=== PATIENT | female | born 2000 | race Caucasian/White ===

== ENCOUNTER 2021-06-24 23:54 | Observation (INO) | END 2021-06-25 01:41 | disposition home or self-care (01) | LOC: 1NENULAB | PROVIDERS: ADMIT Student in an Organized Health Care Education/Training Program; ATTEND Student in an Organized Health Care Education/Training Program ==

== ENCOUNTER 2021-07-04 21:44 | Inpatient (IN) ==
[~2021-07-04 21:44] MED LIST: *HR* Nalbuphine 10 MG/ML AMPUL IV PRN; Famotidine 20 MG/2 ML VIAL IVP PRN; Lidocaine 1% 20 ML MDV INFILT PRN; Metoclopramide 10 MG/2 ML VIAL IVP PRN; Naloxone 0.4 MG/ML INJ IVP PRN; Ondansetron 4 MG/2 ML VIAL IVP PRN
[2021-07-04] MEDS ORDERED: Ringers Solution, Lactated 1,000 ML IVC SCH (21:45)
[2021-07-04] MEDS ORDERED: EPHEDrine 50 MG/ML VIAL IVP PRN (21:48)
[2021-07-04] MEDS ORDERED: *HR* FentaNYL (PF) 100 MCG/2 ML VIAL EP ONE (21:48)
[2021-07-04] MEDS ORDERED: Ropivacaine/PF 0.2% 20 ML VIAL EP ONE (21:48)
[2021-07-04] MEDS ORDERED: *HR* FentaNYL (PF) 100 MCG/2 ML VIAL ONE (21:52)
[2021-07-04] MEDS ORDERED: Oxytocin 20 units/ LR 1000 mL 20 UNIT/1,000 ML BAG IVC ONE (21:53)
[2021-07-04] MEDS ORDERED: Epidural Premix (fent/bupiv) 110 ML EP SCH (22:00)
[2021-07-04 22:11] LABS: Basophils % 0.4 %; Eosinophils # 0.1 K/mcL (0.0-0.6); Eosinophils % 0.9 %; Hematocrit 36.6 % (35.3-44.9); Hemoglobin 12.2 g/dL (11.5-15.4); Immature Granulocytes % 0.4 % (0-4); Lymphocytes # 2.2 K/mcL (0.6-4.6); Lymphocytes % 23.4 %; Mean Corpuscular HGB Conc 33.3 g/dL (31.6-35.5); Mean Corpuscular Hemoglobin 28.4 pg (28.0-33.3); Mean Corpuscular Volume 85.1 fL (83.0-100.0); Mean Platelet Volume 11.6 fL (9.4-12.4); Monocytes # 0.6 K/mcL (0.0-1.3); Monocytes % 6.5 %; Neutrophils # 6.3 K/mcL (1.6-8.9); Platelet Count 227 K/mcL (140-400); Segmented Neutrophils % 68.4 %; White Blood Count 9.2 K/mcL (4.3-11.1)
[2021-07-04 23:24] LABS: Amphetamine Screen,Urine Negative ng/mL (Cutoff=1000); Barbiturate Screen,Urine Negative ng/mL (Cutoff=200); Benzodiazepines Screen,Urine Negative ng/mL (Cutoff=200); Cannabinoid Screen,Urine Negative ng/mL (Cutoff = 50); Cocaine Screen,Urine Negative ng/mL (Cutoff= 300); Opiate Screen,Urine Negative ng/mL (Cutoff=300); Phencyclidine Screen,Urine Negative ng/mL (Cutoff=25); Protein/Creatinine Ratio,Urine 1.04 mg/mg (0.00-0.20)
[2021-07-04 23:34] LABS: Alanine Aminotransferase 8 Units/L (7-52); Aspartate Amino Transferase 18 Units/L (13-39); BUN/Creatinine Ratio 9 (6-26); Blood Urea Nitrogen 8 mg/dL (6-20); Lactate Dehydrogenase 184 Units/L (140-271); Uric Acid 5.6 mg/dL (2.3-7.6); eGFR For African Americans > 60; eGFR For Non-African Americans > 60
[2021-07-05] MEDS ORDERED: Rho Immune Globulin 1,500 UNIT SYRINGE IM PRN (01:36)
[2021-07-05] MEDS ORDERED: Measles/Mumps/Rubella Vacc 0.5 ML VIAL SQ PRN (01:36)
[2021-07-05] MEDS ORDERED: Oxytocin 20 units/ LR 1000 mL 20 UNIT/1,000 ML BAG IVC SCH (01:36)
[2021-07-05] MEDS ORDERED: Oxytocin 20 units/ LR 1000 mL 20 UNIT/1,000 ML BAG IVC ONE (01:36)
[2021-07-05] MEDS ORDERED: Acetaminophen 325 MG TABLET PO PRN (01:36)
[2021-07-05 04:34] LABS: Basophils % 0.3 %; Hematocrit 31.7 % (35.3-44.9); Hemoglobin 10.7 g/dL (11.5-15.4); Immature Granulocytes % 0.3 % (0-4); Lymphocytes # 1.5 K/mcL (0.6-4.6); Lymphocytes % 10.4 %; Mean Corpuscular HGB Conc 33.8 g/dL (31.6-35.5); Mean Corpuscular Hemoglobin 28.8 pg (28.0-33.3); Mean Corpuscular Volume 85.4 fL (83.0-100.0); Mean Platelet Volume 11.8 fL (9.4-12.4); Monocytes # 0.8 K/mcL (0.0-1.3); Monocytes % 5.7 %; Neutrophils # 12.3 K/mcL (1.6-8.9); Platelet Count 201 K/mcL (140-400); Red Blood Count 3.71 M/mcL (3.82-4.97); Red Cell Distribution Width 13.8 % (11.5-14.5); Segmented Neutrophils % 83.3 %; White Blood Count 14.8 K/mcL (4.3-11.1)
[2021-07-05] MEDS: Prenatal Vit/FA 1 EACH TABLET PO SCH (08:45)
[2021-07-05] MEDS: Ibuprofen 600 MG TABLET PO PRN (20:26)
[2021-07-06 04:15] VITALS: TEMP 97.7
[2021-07-06] MEDS: Ibuprofen 600 MG TABLET PO PRN (07:38)
[2021-07-06] MEDS: Prenatal Vit/FA 1 EACH TABLET PO SCH (07:39)
[2021-07-06 07:54] VITALS: BP 126/80; PULSE 70; O2SAT 97
[2021-07-06] MEDS ORDERED: Lanolin 7 G OINT...G. TP PRN (08:08)
== END 2021-07-06 14:10 | disposition home or self-care (01) | DRG 807 ==
LOC: 1NENULAB → 1NENUOBS 07-05 01:39
PROVIDERS: ADMIT Obstetrics & Gynecology; ATTEND Obstetrics & Gynecology